=== PATIENT | male | born 2005 | race Caucasian/White ===

== ENCOUNTER 2024-05-07 18:19 | Emergency (ER) | payer OTHER, SELFPAY ==
[2024-05-07 18:23] VITALS: BP 111/71
--- NOTE | 2024-05-07 19:01 | ED.SKININJ ---
HPI-Injury
General
Chief Complaint: Eye Problems
Source: patient
Exam Limitations: none
Time Seen by Provider: 05/07/24 18:23
Nursing documentation reviewed up to this point in time: agreed with
History of Present Illness-Injury
Is this injury a work related problem?: Yes
Is pt an associate of [facility]?: No
Initial Injury comments:
Patient states she accidentally got sprayed in face with drum cleaner at work. Exposure to both eyes. Both eyes were flushed at work and then by EMS on way to ED. Incident occurrd just [employer]
Past History
Past History
ED Past Medical History: None
ED Past Surgical History: None
Review of Systems
Review of Systems
Allergies reviewed?: Yes
All Other Systems: ROS reviewed and negative except as documented in HPI and ROS
Constitutional: Reports no symptoms
EENT: Reports other (chemical exposure bilateral eyes)
Musculoskeletal: Reports no symptoms
Skin: Reports no symptoms
Neurological: Reports no symptoms
Psychiatric: Reports no symptoms
Phy Exam
General Physical Exam
General Presentation: well appearing and no apparent distress
General age: appears stated age
General Skin: warm and dry
General Habitus: normal
General Mental: alert
General Hydration: appears well hydrated
Eye Exam
Eye Exam: PERRL, EOMI, cornea clear, conjunctiva normal, globe normal and other (PH 7.0 bilaterally. No corneal damage noted on slit lamp exam. recommend artificial tears every hour while awake, follow up with workman's comp provider in AM)
Eye Exam General: PERRL: bilateral and EOM intact: bilateral
Conjunctival Changes: bilateral: none
Type of Exam: slit lamp, simple and fluorescein
Musculoskeletal Exam
Musculoskeletal Exam: full ROM
Skin Exam
Skin Exam: normal color, warm/dry and no rash
Psychiatric Exam
Psychiatric Exam: normal mood/affect
Course
Vital Signs
Initial and Last Documented VS:
Initial Vital Signs
Temp Pulse Resp BP Pulse Ox
97.9 F 110 16 111/71 100
05/07/24 18:23 05/07/24 18:23 05/07/24 18:23 05/07/24 18:23 05/07/24 18:23
Last Documented Vital Signs
Temp Pulse Resp BP Pulse Ox
97.9 F 95 18 110/78 98
05/07/24 18:23 05/07/24 19:09 05/07/24 19:09 05/07/24 19:09 05/07/24 19:09
*Critical Care Note
Total Time (30-74mins, 75-104mins- exclusive of procedures): Not Applicable
ED Attending Note
-
Portions of this chart may have been created with voice recognition software.� Occasional wrong word or��sound alike� substitutions may have occurred due to the inherent limitations of voice recognition software.
Discharge Plan
Departure
Patient Disposition: Home (Routine Discharge)
Date of Disposition: 05/07/24
Time of Disposition: 18:57
Patient with high blood pressure during this ER visit?: No
Condition: Good
Covid-19: Not Applicable
Discharge Problem:
Chemical exposure of eye
Instructions: How to Use Eye Drops, Conjunctivitis (Noninfectious Pinkeye) (DC)
Prescriptions:
New
Artificial Tears(glycerin-peg) 1-0.3 % drops
1 drp ophthalmic (eye) Q1H Qty: 15 0RF
Rx Instructions:
1 drop to both eyes every hour while awake.
Stand Alone Forms: Return to Work
Activity Restrictions/Additional Instructions:
FOllow up with your workman's comp provider in the AM
Interventions
Interventions:
*Risk Screen - Suicide Last Done: 05/07/24 18:30
*General Assessment Last Done: 05/07/24 18:30
*Neglect/Abuse Screening Last Done: 05/07/24 18:30
*Nursing Disposition Last Done: 05/07/24 19:10
Discharge Date and Time
Discharge Date/Time: 05/07/24 19:11
Print Language: ANGOLAN
[2024-05-07 19:09] VITALS: BP 110/78
== END 2024-05-07 19:11 | disposition home or self-care (01) ==
LOC: EMR 18:19
PROVIDERS: EMERGENCY PHYSICIAN Student in an Organized Health Care Education/Training Program
DX: Z77.098 Contact with and (suspected) exposure to other hazardous, chiefly nonmedicinal, chemicals (principal); Y99.0 Civilian activity done for income or pay
CPT/HCPCS: 99282